=== PATIENT | male | born 1995 | race Caucasian/White ===

== ENCOUNTER 2020-03-19 08:23 | Day surgery (SDC) | payer BC, OTHER ==
[2020-03-18 12:40] VITALS: BMI 32.5
[~2020-03-19 08:23] MED LIST: ACETAMINOPHEN TAB 500 MG TAB PO ONE; DEXAMETHASONE SOD PHOSPHATE 10 MG/ML 1 ML VIAL IV ONE; HEPARIN SODIUM,PORCINE 5,000 UNIT/ML 1 ML VIAL SQ ONE; HYDROmorphone 0.5 MG/0.5 ML SYRINGE IVP PRN; LACTATED RINGERS 1,000 ML IV SCH; LIDOCAINE 1% (10MG/ML) FOR IV START INTRADERMA PRN; MIDAZOLAM 2 MG/2 ML VIAL IV PRN; ONDANSETRON 4 MG/2 ML VIAL IVP ONE; metroNIDAZOLE-NS PMX 500 MG in SALINE 1 100ML.BAG IVPB ONE
[2020-03-19 08:41] VITALS: TEMP 97.8
--- NOTE | 2020-03-19 09:00 | P.GSHP ---
History of Present Illness H&P Date: 03/19/20 Chief Complaint: Pilonidal cyst This a 24-year-old male who presents today for excision of pilonidal cyst. Patient has chronic infections of the pilonidal cyst. Past Medical History Additional Past Medical History / Comment(s): PILONIDAL CYST History of Any Multi-Drug Resistant Organisms: None Reported Past Surgical History: No Surgical Hx Reported Past Anesthesia/Blood Transfusion Reactions: No Reported Reaction Smoking Status: Never smoker - Past Family History Mother Family Medical History: No Reported History Medications and Allergies Home Medications Medication Instructions Recorded Confirmed Type Citalopram Hydrobromide [CeleXA] 20 mg PO DAILY 03/18/20 03/18/20 History Dextroamphetamine/Amphetamine 30 mg PO DAILY 03/18/20 03/19/20 History [Adderall] Allergies Allergy/AdvReac Type Severity Reaction Status Date / Time No Known Allergies Allergy Verified 03/19/20 08:35 Surgical - Exam Vital Signs Temp Pulse Resp BP Pulse Ox 97.8 F 63 17 151/78 98 03/19/20 08:40 03/19/20 08:40 03/19/20 08:40 03/19/20 08:40 03/19/20 08:40 - General well developed, well nourished - Eyes PERRL - ENT normal pinna - Neck no masses - Respiratory normal expansion - Cardiovascular Rhythm: regular - Abdomen Abdomen: soft - Integumentary Pilonidal cyst. We'll perform excision.
[2020-03-19] MEDS ORDERED: fentaNYL (PF) 50 MCG/ML 2 ML AMP ONE (09:13)
[2020-03-19] MEDS ORDERED: KETOROLAC 15 MG/ML 1 ML VIAL ONE (09:13)
[2020-03-19] MEDS ORDERED: HYDROmorphone (PF) 1 MG/ML ONE (09:13)
[2020-03-19] MEDS ORDERED: MIDAZOLAM 2 MG/2 ML VIAL ONE (09:13)
[2020-03-19] MEDS ORDERED: PROPOFOL 10 MG/ML 20 ML VIAL IV ONE (09:13)
[2020-03-19] MEDS ORDERED: KETAMINE 10 MG/ML 20 ML VIAL ONE (09:13)
[2020-03-19] MEDS ORDERED: BUPIVACAINE (PF) 0.5% 30 ML VIAL SQ ONE (09:36)
[2020-03-19 09:56] VITALS: RESP 16
--- NOTE | 2020-03-19 10:01 | P.OP ---
Date of Procedure: 03/19/20 Preoperative Diagnosis: Chronically infected abdominal cyst Postoperative Diagnosis: Chronically infected pilonidal cyst Procedure(s) Performed: Excision of pilonidal cyst Anesthesia: MAC Surgeon: Naveed Jones Estimated Blood Loss (ml): 10 Pathology: other (Pilonidal cyst) Condition: stable Disposition: PACU Description of Procedure: Patient's placed on the operating table in the prone position. He received IV sedation. The pilonidal cyst was prepped and draped usual sterile fashion. The skin was anesthetized 1% local Xylocaine. Using a 15 blade the skin was incised and then using cautery the subcutaneous tissue divided and the prognosis was excised. The Bovie hemostasis. The wound was packed with dry Kerlix. Patient top she will was sent to recovery room in stable condition.
[2020-03-19 10:41] VITALS: BP 141/69; PULSE 70
== END 2020-03-19 10:55 ==
LOC: OR 08:23
PROVIDERS: ATTEND Surgery
DX: L05.01 Pilonidal cyst with abscess (principal); F32.9 Major depressive disorder, single episode, unspecified; F90.9 Attention-deficit hyperactivity disorder, unspecified type; Z79.899 Other long term (current) drug therapy
CPT/HCPCS: 88304; 11770; J2250; J1100; J0690; J2405; J3010; J1170; J1885; J2704